=== PATIENT | female | born 1990 | race Caucasian/White ===

== ENCOUNTER → 2020-01-21 18:50 | Observation (INO) ==
[2020-01-21 18:32] VITALS: BP 101/65
[~2020-01-21 18:50] MED LIST: *HR* FentaNYL (PF) 100 MCG/2 ML VIAL ONE; *HR* HYDROmorphone PF 0.5 MG/0.5 ML SYRINGE IVP PRN; *HR* Midazolam HCl 2 MG/2 ML VIAL ONE; *HR* Propofol 200 MG/20 ML VIAL IVP ONE; CeFAZolin 2,000 MG/50 ML BAG IVPB ONE; Dexamethasone 4 MG/ML VIAL ONE; Ibuprofen 800 MG TABLET PO PRN; Ketorolac 30 MG/ML VIAL ONE; Lidocaine -MPF 2% 5 ML VIAL ONE; Methylergonovine 0.2 MG/ML AMPUL IM ONE; Ondansetron 4 MG/2 ML VIAL IVP PRN; Ringers Solution, Lactated 1,000 ML ONE; miSOPROStoL 100 MCG TABLET PO STA
== END | disposition home or self-care (01) ==
LOC: 1NENULAB
PROVIDERS: ADMIT Obstetrics & Gynecology; ATTEND Obstetrics & Gynecology

== ENCOUNTER → 2020-11-19 11:35 | Observation (INO) | END | disposition home or self-care (01) | LOC: 1NENULAB | PROVIDERS: ADMIT Obstetrics & Gynecology; ATTEND Obstetrics & Gynecology ==

== ENCOUNTER 2020-11-25 08:56 | Inpatient (IN) ==
[2020-11-25] MEDS ORDERED: Famotidine 20 MG/2 ML VIAL IVP PRN (10:21)
[2020-11-25] MEDS ORDERED: Metoclopramide 10 MG/2 ML VIAL IVP PRN (10:21)
[2020-11-25] MEDS ORDERED: *HR* Nalbuphine 10 MG/ML AMPUL IV PRN (10:21)
[2020-11-25] MEDS ORDERED: Ondansetron 4 MG/2 ML VIAL IVP PRN ×2 (10:21→10:43)
[2020-11-25] MEDS ORDERED: Azithromycin 500 MG in 0.9 % Sodium Chloride 250 ML IVPB ONE (10:21)
[2020-11-25] MEDS ORDERED: Naloxone 0.4 MG/ML INJ IVP PRN ×2 (10:21→10:43)
[2020-11-25] MEDS ORDERED: Ringers Solution, Lactated 1,000 ML IVC SCH (10:30)
[2020-11-25] MEDS ORDERED: Ropivacaine/PF 0.2% 20 ML VIAL EP ONE (10:43)
[2020-11-25] MEDS ORDERED: EPHEDrine 50 MG/ML VIAL IVP PRN (10:43)
[2020-11-25] MEDS ORDERED: Epidural Premix (fent/bupiv) 110 ML EP SCH (10:45)
[2020-11-25 10:54] LABS: Basophils % 0.3 %; Eosinophils % 0.4 %; Hematocrit 33.3 % (35.3-44.9); Hemoglobin 10.3 g/dL (11.5-15.4); Immature Granulocytes % 0.7 % (0-4); Lymphocytes # 2.1 K/mcL (0.6-4.6); Lymphocytes % 22.7 %; Mean Corpuscular HGB Conc 30.9 g/dL (31.6-35.5); Mean Corpuscular Hemoglobin 26.1 pg (28.0-33.3); Mean Corpuscular Volume 84.3 fL (83.0-100.0); Mean Platelet Volume 9.6 fL (9.4-12.4); Monocytes # 0.6 K/mcL (0.0-1.3); Monocytes % 5.9 %; Neutrophils # 6.6 K/mcL (1.6-8.9); Nucleated Red Blood Cells 0.2 /100 WBC (0); Platelet Count 357 K/mcL (140-400); Red Blood Count 3.95 M/mcL (3.82-4.97); Red Cell Distribution Width 13.6 % (11.5-14.5); White Blood Count 9.4 K/mcL (4.3-11.1)
[2020-11-25 10:58] LABS: Amphetamine Screen,Urine Negative ng/mL (Cutoff=1000); Barbiturate Screen,Urine Negative ng/mL (Cutoff=200); Benzodiazepines Screen,Urine Negative ng/mL (Cutoff=200); Cannabinoid Screen,Urine Negative ng/mL (Cutoff = 50); Cocaine Screen,Urine Negative ng/mL (Cutoff= 300); Opiate Screen,Urine Negative ng/mL (Cutoff=300); Phencyclidine Screen,Urine Negative ng/mL (Cutoff=25); Protein/Creatinine Ratio,Urine 0.16 mg/mg (0.00-0.20)
[2020-11-25] MEDS ORDERED: Ropivacaine/PF 0.2% 20 ML VIAL ONE (11:01)
[2020-11-25 11:18] LABS: Alanine Aminotransferase 12 Units/L (7-52); Aspartate Amino Transferase 19 Units/L (13-39); BUN/Creatinine Ratio 17 (6-26); Blood Urea Nitrogen 9 mg/dL (6-20); Lactate Dehydrogenase 187 Units/L (140-271); Uric Acid 4.9 mg/dL (2.3-7.6); eGFR For African Americans > 60 (> 60); eGFR For Non-African Americans > 60 (> 60)
[2020-11-25] MEDS ORDERED: Oxytocin 20 units/ LR 1000 mL 20 UNIT/1,000 ML BAG IVC SCH ×2 (14:15→18:00)
[2020-11-25] MEDS ORDERED: Acetaminophen 325 MG TABLET PO PRN (18:00)
[2020-11-25] MEDS ORDERED: Benzocaine/Menthol 56 GM AEROSOL SPRAY TP PRN (18:00)
[2020-11-25] MEDS ORDERED: Lanolin 7 G OINT...G. TP PRN (18:00)
[2020-11-25] MEDS ORDERED: *HR* HYDROcodone/Acet 5/325 mg TABLET PO PRN (18:00)
[2020-11-25] MEDS: Ibuprofen 600 MG TABLET PO PRN (19:48)
[2020-11-26 04:45] LABS: Basophils # 0.1 K/mcL (0.0-0.2); Basophils % 0.5 %; Eosinophils # 0.2 K/mcL (0.0-0.6); Eosinophils % 1.9 %; Hematocrit 27.1 % (35.3-44.9); Immature Granulocytes % 0.5 % (0-4); Lymphocytes # 3.2 K/mcL (0.6-4.6); Lymphocytes % 28.8 %; Mean Corpuscular HGB Conc 30.6 g/dL (31.6-35.5); Mean Corpuscular Hemoglobin 25.6 pg (28.0-33.3); Mean Corpuscular Volume 83.6 fL (83.0-100.0); Mean Platelet Volume 9.5 fL (9.4-12.4); Monocytes # 0.9 K/mcL (0.0-1.3); Neutrophils # 6.7 K/mcL (1.6-8.9); Nucleated Red Blood Cells 0.2 /100 WBC (0); Platelet Count 287 K/mcL (140-400); Red Blood Count 3.24 M/mcL (3.82-4.97); Red Cell Distribution Width 13.6 % (11.5-14.5); Segmented Neutrophils % 60.3 %; White Blood Count 11.1 K/mcL (4.3-11.1)
[2020-11-26 04:47] LABS: Hemoglobin 8.3 g/dL (11.5-15.4)
[2020-11-26] MEDS: Ibuprofen 600 MG TABLET PO PRN ×2 (08:22→16:03)
[2020-11-26] MEDS ORDERED: Prenatal Vit/FA 1 EACH TABLET PO SCH (09:00)
[2020-11-26 17:48] VITALS: BP 118/76
== END 2020-11-26 17:52 | disposition home or self-care (01) | DRG 807 ==
LOC: 1NENULAB → OBSVTOIN 08:56 → 1NENULAB 13:11 → 1NENUOBS 17:38
PROVIDERS: ADMIT Obstetrics & Gynecology; ATTEND Obstetrics & Gynecology